=== PATIENT | male | born 1975 | race Hispanic/Latino ===

== ENCOUNTER 2025-01-22 10:51 | Emergency (ER) | payer BC, OTHER ==
[~2025-01-22] VITALS: Ht 177.8 cm; Wt 108.9 kg
[2025-01-22 11:27] LABS: IMMATURE GRANULOCYTE ABSOLUTE 0.01 K/uL (0-1); NUCLEATED RED BLOOD CELLS 0.0 % (0.0-0.19); PLATELET COUNT (AUTO) 233 K/uL (130-400); RED BLOOD CELL COUNT(AUTO) 5.32 MIL/uL (4.50-6.20); RED CELL DISTRIBUTION WIDTH 14.3 % (11.0-15.5); WHITE BLOOD COUNT (AUTO) 5.2 K/uL (4.8-10.8)
[2025-01-22 11:35] LABS: CREATININE 0.9 mg/dL (0.5-1.3); GLOMERULAR FILTR. RATE CALC 106.0 mL/min (>90); GLUCOSE,RANDOM 174.0 mg/dL (70-105); SODIUM SERUM 137.0 mmol/L (136-145); UREA NITROGEN, BLOOD 10.0 mg/dL (7-18)
[2025-01-22 11:40] LABS: CREATINE KINASE, TOTAL 83.0 U/L (21-232)
[2025-01-22 11:42] LABS: AMPHET/METH SCREEN,URINE NEGATIVE (NEGATIVE); BARBITURATE SCREEN, URINE NEGATIVE (NEGATIVE); CANNABINOID SCREEN,URINE NEGATIVE (NEGATIVE); COCAINE SCREEN,URINE NEGATIVE (NEGATIVE)
--- NOTE | 2025-01-22 11:48 | HMCIMG ---
CHEST 1VW REASON: palpitations/cp COMPARISON: None. FINDINGS: Single view of the chest was obtained. Lungs are clear. Heart size is normal. There is no pulmonary vascular congestion. Mediastinum and bony thorax appear unremarkable. IMPRESSION: 1. Normal single view chest x-ray.
--- NOTE | 2025-01-22 13:26 | ERN ---
General Chief Complaint: Palpitations Stated Complaint: PALPITATIONS Time Seen by MD: 10:52 Time Seen by Midlevel: 10:52 Source: patient History of Present Illness Initial Comments The patient is a 49-year-old male presenting to the emergency department for evaluation of palpitations and high blood pressure. Patient is currently on losartan. Blood pressure at home was 200 systolic we decided to report to the ER further evaluation. On arrival the palpitations resolved and patient reports feeling improved.. Allergies: Coded Allergies: No Known Drug Allergies (Unverified Allergy, Unknown, 01/22/25) Past Medical History Past Medical History: Other Medical History Other: GASTRITIS Past Surgical History: None ROS Dictation CONSTITUTIONAL: Negative except for HPI HEAD/FACE: Negative except for HPI EENT: Negative except for HPI RESPIRATORY: Negative except for HPI GASTROINTESTINAL/ABDOMINAL: Negative except for HPI GENITOURINARY: Negative except for HPI MUSCULOSKELETAL: Negative except for HPI INTEGUMENTARY: Negative except for HPI NEUROLOGICAL/PSYCH: Negative except for HPI HEMATOLOGIC/LYMPHATIC: Negative except for HPI All Systems Negative, Except as noted above. 13 point review of systems assessed and all negative except for above. Physical Exam Physical Exam Dictation Vital Signs reviewed General Appearance: Alert, oriented x 3, no acute distress, well developed, nourished. Head and Face: non-traumatic. Eyes: PERRL, pink conjunctivas, eyelid no trauma, anterior chamber with arcus senilis. Ears: Pinnas intact and no signs of trauma or erythema ear canals clear and no discharge TM no erythema Nose: No discharge, no bleeding. Oropharynx: Mouth normal, tongue pink, pharynx clear,no erythema, tonsils no exudates, no abscesses noted, mucous membrane moist Neck: Supple, non-tender, no thyromegaly, no masses, no JVD, no bruits Breast:Deferred Chest:No tenderness, no crepitus, no paradoxical movement, no retractions Lungs:Clear, well-ventilated, symmetric, no rales, no wheezing, no rhonchi, no stridor, good breath sounds bilaterally Heart: Regular rate, regular rhythm, no murmur, no gallops Vascular: no peripheral edema, Abdomen: Soft, positive bowel sounds, nondistended, no guarding, nontender, no rebound, no masses no hepatomegaly, no splenomegaly, no Baez's sign, no hernias. Rectal: Deferred Genital: Deferred Neurological: Normal speech, motor function intact, sensory function intact Musculoskeletal: Neck nontender, full range of motion, back nontender, full range of motion, Extremities: nontender, full range of motion Skin: Color pink, dry, no turgor, no rash, no lacerations, no abrasions, no contusions. Lymphatic: Deferred Results Laboratory and Microbiology Lab and Micro Result Laboratory Tests Test 01/22/25 11:08 01/22/25 11:09 01/22/25 12:40 Urine Opiates Screen NEGATIVE (NEGATIVE) Urine Barbiturates Screen NEGATIVE (NEGATIVE) Urine Phencyclidine Screen NEGATIVE (NEGATIVE) Urine Amphetamines Screen NEGATIVE (NEGATIVE) Urine Benzodiazepines Screen NEGATIVE (NEGATIVE) Urine Cocaine Screen NEGATIVE (NEGATIVE) Urine Marijuana (THC) Screen NEGATIVE (NEGATIVE) White Blood Count 5.2 K/uL (4.8-10.8) Red Blood Count 5.32 MIL/uL (4.50-6.20) Hemoglobin 14.5 g/dL (14.0-18.0) Hematocrit 43.0 % (42-54) Mean Corpuscular Volume 80.8 fL (79-99) Mean Corpuscular Hemoglobin 27.3 pg (27.0-33.0) Mean Corpuscular Hemoglobin Concent 33.7 g/dL (32.0-36.0) Red Cell Distribution Width 14.3 % (11.0-15.5) Platelet Count 233 K/uL (130-400) Mean Platelet Volume 9.4 fL (7.5-10.5) Immature Granulocyte % (Auto) 0.2 % (0-1) Neutrophils (%) (Auto) 71.4 % (40.0-77.0) Lymphocytes (%) (Auto) 22.8 % (21.0-51.0) Monocytes (%) (Auto) 4.8 % (3.0-13.0) Eosinophils (%) (Auto) 0.4 % (0.0-8.0) Basophils (%) (Auto) 0.4 % (0.0-5.0) Neutrophils # (Auto) 3.7 K/uL (1.8-7.7) Lymphocytes # (Auto) 1.2 K/uL (1.0-4.8) Monocytes # (Auto) 0.3 K/uL (0.1-1.0) Eosinophils # (Auto) 0.02 K/uL (0.00-0.70) Basophils # (Auto) 0.02 K/uL (0.00-0.20) Absolute Immature Granulocyte (auto 0.01 K/uL (0-1) Nucleated Red Blood Cells 0.0 % (0.0-0.19) Sodium Level 137 mmol/L (136-145) Potassium Level 3.4 mmol/L (3.5-5.1) L Chloride Level 101 mmol/L (101-111) Carbon Dioxide Level 31 mmol/L (21-32) Blood Urea Nitrogen 10 mg/dL (7-18) Creatinine 0.9 mg/dL (0.5-1.3) Glomerular Filtration Rate Calc 106 mL/min (>90) Random Glucose 174 mg/dL (70-105) H Total Calcium 8.7 mg/dL (8.5-10.1) Magnesium Level 2.10 mg/dL (1.80-2.40) Total Creatine Kinase 83 U/L (21-232) Troponin I High Sensitivity 8 ng/L (4-75) 8 ng/L (4-75) Labs Reviewed?: Yes MDM MDM: Differential diagnosis: Acute coronary syndrome, hypertensive urgency, electrolyte abnormality, dehydration There are no social concerns with this patient. Prescription drug management Prescriptions will include: Clonidine Medical management and examination interpretation discussions were had by me with other qualified healthcare professionals as indicated for the patient's care. ED Course Orders Procedure Category Date Status Time 12 Lead Ekg Tracing- EKG 01/22/25 Logged Technical 10:52 Cbc With Differential LAB 01/22/25 Complete 10:52 Basic Metabolic Panel LAB 01/22/25 Complete 10:52 Drug Screen Urine LAB 01/22/25 Complete 10:52 Magnesium LAB 01/22/25 Complete 10:52 Troponin I High LAB 01/22/25 Complete Sensitivity 10:52 Creatine Kinase, Total LAB 01/22/25 Complete 10:52 Chest 1vw RAD 01/22/25 Resulted 10:52 Labetalol 20mg Syg PHA 01/22/25 Complete (Trandate 20mg Syg) 11:30 Troponin I High LAB 01/22/25 Complete Sensitivity 12:14 Current Medications Medications (Trade) Dose Ordered Sig/Arielle Route PRN Reason Start Time Stop Time Status Last Admin Dose Admin Labetalol HCl (TRANdate 20MG SYG) 10 mg ONCE ONCE IV 01/22/25 11:30 01/22/25 11:31 DC 01/22/25 11:48 Vital Signs Date Time Temp Pulse Resp B/P (MAP) Pulse Ox O2 Delivery O2 Flow Rate FiO2 01/22/25 11:48 186/102 01/22/25 11:15 98.2 92 20 186/123 99 Room Air* 0 21 01/22/25 10:52 98.1 91 18 203/116 100 Room Air DX & DISP Disposition: Discharge Departure Impression: Primary Impression: Hypertensive urgency Condition: Stable Additional Instructions: Your blood work today is unremarkable. Your EKG is normal. Your chest x-ray is normal. Your two sets of cardiac enzymes are negative. Your blood pressure was elevated when you arrived however you were given IV medication. Continue taking your losartan. Keep appointment with your primary care doctor as discussed. I have given you a prescription for 0.1 mg clonidine. You are to only take this medication if your systolic blood pressure (the top number) is over 180. This medication may take up to 1 hour to start working. If your blood pressures over 200 please report to the ER further evaluation. Referrals: SELF,REFERRAL (PCP) Time of Disposition: 13:24 I have reviewed the case, and I agree with, Diagnosis and Plan I performed the substantive portion of the visit. I have reviewed and personally made and approve the management plan that is documented in the note by myself or the JAJA. I acknowledge for responsibility for the patient's management plan. RACHEL NEGRON Jan 22, 2025 13:26
[2025-01-22 13:33] VITALS: BP 142/101; PULSE 74; RESP 20; TEMP 97.5; O2SAT 97
--- NOTE | 2025-01-22 13:42 | EKG ---
[facility] Test Date: 2025-01-22 Test Time: 11:10:00 Pat Name: JOSE EDUARDO BULLOCK Department: ED Patient ID: [facility] [id number] Room: Gender: Roving [employer] Tender: [facility] : 1975 Requested By: RACHEL NEGRON Order Number: [id number] Reading MD: Dave Masters Measurements Intervals [place] Rate: 94 P: -24 [place]: 153 QRS: 30 QRSD: 82 T: 35 QT: 337 QTc: 421 Interpretive Statements Sinus rhythm No previous ECG available for comparison Electronically Signed On 01-23-2025 02:17:46 CDT by Dave Masters Please click the below link to view image of tracing.
[2025-01-22] MEDS ORDERED: CLON0.1T PO (14:22)
[2025-01-22] MEDS ORDERED: AMOX1TAB16 PO (14:23)
== END 2025-01-22 14:53 | disposition home or self-care (01) ==
LOC: EDH 10:51
DX: I16.0 Hypertensive urgency (principal); Z87.19 Personal history of other diseases of the digestive system
CPT/HCPCS: 36415; 71045; 80048; 80305; 82550; 83735; 84484; 85025; 93005; 96374; 99284